=== PATIENT | female | born 1945 | race Caucasian/White ===

== ENCOUNTER → 2017-10-31 | Outpatient (CLI) | payer OTHER ==
[~2017-10-31] MED LIST: ARTIFICIAL TEA3.5 GM OP; ASPIR 8181 MG PO; FISH OIL 1,001000 M2 PO; HYDROCHLOROTHIA25 M2 PO; IBUPROFEN 200200 M1 PO; LISINOPRIL20 MG PO; NABUMETONE 750750 M1 PO; PREDNISONE 20 M20 MG PO; TOPROL XL25 MG PO; TRAMADOL 50 MG50 MG PO; VALTREX1000 MG PO; VENTOLIN HFA 1818 GM INH; ZPAK PO
--- NOTE | ~2017-10-31 | P ---
[facility] [place] [address] PROCEDURE REPORT Name: QUIQUE CONCEPCION Room #: REG [facility]#: [id number] Admission: 10/31/17 Attend Phys: Denise Cortez MD Discharge: Date of : 41 Report #: [id number] THIS REPORT FOR: //name// CC: [facility] physician/PCP Denise Cortez MD BRIEF HISTORY: The patient is a 72-year-old woman with back pain who has been receiving epidural injections, but also had been using ibuprofen 200 mg 3 to 4 times daily and she has also been taking Relafen twice daily along with the baby aspirin daily. She saw Dr. Cortez earlier today because she had black stools over the weekend. Dr. Cortez tells me that she declined request for hospitalization and urgent upper endoscopy was requested. PREOPERATIVE DIAGNOSIS: Upper gastrointestinal bleeding. POSTOPERATIVE DIAGNOSES: 1. Nonbleeding gastric antral ulcer. 2. Multiple small duodenal ulcers, second portion of duodenum. 3. Mild ulcerated duodenal stricture, between bulb and second portion. 4. Erosive esophagitis, moderate limited to the GE junction. MEDICATIONS: Deep sedation with propofol per anesthesia. SPECIMEN: Biopsies of antrum for H. pylori. ESTIMATED BLOOD LOSS: 3 mL. PROCEDURE: EGD with biopsy. FINDINGS: Prior to propofol sedation, procedure of upper endoscopy discussed with the patient as well as potential risks and its complications. She indicates she understands and desires to proceed. With the patient in the left lateral decubitus position, the Fuji video endoscope was inserted in the cervical esophagus under direct vision without difficulty. Examination of this organ through its entire length revealed normal esophageal mucosa down the squamocolumnar junction. The squamocolumnar junction was inspected. Multiple erosions were seen along the squamocolumnar junction consistent with an erosive esophagitis. This may be secondary to nonsteroidals. No strictures or masses were seen. No bleeding was identified. The scope was advanced into the stomach, was examined on end view as well as retroflexed views. The stomach was free of blood. No blood or black material was seen in the stomach. The stomach was completely empty. Stomach was examined on end view as well as retroflexed views. Examination of the proximal stomach revealed normal appearing mucosa without evidence of bleeding. Examination of the distal stomach revealed a deep punched out type ulcer in the antrum in the [address] [address] PROCEDURE REPORT Name: QUIQUE CONCEPCION Room #: REG [facility]#: [id number] Admission: 10/31/17 Attend Phys: Denise Cortez MD Discharge: Date of : 41 Report #: [id number] inferolateral position. The ulcer crater was no more than about 6 mm in greatest dimension. However, it was fairly deep. There was some brownish material, but this washed away. The base of the ulcer appeared to be clean. The pylorus was unremarkable. Examination of duodenal bulb revealed a normal appearing duodenum. However, at the junction of the bulb and the second portion, moderate benign appearing stricture with ulceration was seen. The stricture appeared to be tight, but the scope did pass through this area. No mass lesions were seen. Just beyond the stricture were scattered small nonbleeding ulcers. At that point, the scope was withdrawn back into the stomach. Since the patient had declined admission, we attempted to place a hemostatic clip on the ulcer crater. However, multiple attempts were made without success to engage the clip. At one point, we felt we had good position, but when the clip was released, it immediately dislodged. Since the ulcer was deep and stigmata of bleeding was not identified, it was felt best not to proceed with BICAP cautery as that would make the ulcer larger and since it was not an obvious vessel, the risk of further bleeding should be quite low. Multiple biopsies were obtained of the antrum to evaluate for H. pylori. The scope was withdrawn and the patient tolerated the procedure well. CONDITION OF THE PATIENT UPON DISCHARGE: Following procedure, the patient drowsy. She will be discharged home when fully ambulatory. INSTRUCTIONS TO THE PATIENT AND FAMILY AT THE TIME OF DISCHARGE: We will discuss with Dr. Cortez. The patient does not appear to be actively bleeding at this point in time. Her hemoglobin is 12. However, she does have an elevated creatinine at 2.4 with a BUN of 73. She may have acute kidney injury from her nonsteroidal anti-inflammatory drugs. I advised her to discontinue the nonsteroidals and to speak further with Dr. Cortez. We will place her on a PPI, omeprazole 40 mg twice daily. She should take twice daily for 14 days and then may reduce to 1 daily. I would recommend repeating upper endoscopy in about 10-12 weeks to ensure healing of the ulcers. She also should not use nonsteroidals. She is to call immediately if she develops symptoms such as dizziness, lightheadedness or signs of bleeding such as hematemesis or increase in melanotic stools. <ELECTRONICALLY SIGNED> By: Jr Lay MD 11/01/17 1605 [id number] Jr Lay MD /nt
[2017-10-31 12:56] LABS: ABSOLUTE NEUTROPHILS 13.7 thou/uL (1.4-8.2); BASOPHILS 0.4 % (0.0-2.0); EOSINOPHILS 0.4 % (0.0-3.0); MCH 29.4 pg (26.0-34.0); MCHC 33.4 g/dL (28.0-37.0); MCV 87.9 fL (80.0-100.0); MONOCYTES 6.1 % (1.0-8.0); PLATELET COUNT 341 thou/uL (150-400); POLYS 79.1 % (36.0-66.0); RDW 14.2 % (10.5-14.5); WBC 17.3 thou/uL (4.0-11.0)
[2017-10-31 13:06] LABS: PROTIME 10.1 Seconds (9.3-11.4)
[2017-10-31 13:11] LABS: CALCIUM 9.8 mg/dL (8.5-10.1); CREATININE 2.4 mg/dL (0.6-1.0); POTASSIUM 3.5 mmol/L (3.5-5.1)
[2017-10-31 13:15] LABS: ALBUMIN 3.9 g/dL (3.4-5.0); TOTAL BILIRUBIN 0.5 mg/dL (<0.1-1.0); TOTAL PROTEIN 7.1 g/dL (6.4-8.2)
== END | disposition home or self-care (01) ==
LOC: GI 12:11
PROVIDERS: Internal Medicine
DX: K31.9 Disease of stomach and duodenum, unspecified (principal); K25.9 Gastric ulcer, unspecified as acute or chronic, without hemorrhage or perforation; K26.9 Duodenal ulcer, unspecified as acute or chronic, without hemorrhage or perforation; K31.5 Obstruction of duodenum; K22.10 Ulcer of esophagus without bleeding; Z88.8 Allergy status to other drugs, medicaments and biological substances; Z79.82 Long term (current) use of aspirin; Z79.899 Other long term (current) drug therapy
CPT/HCPCS: 62110; 62900